=== PATIENT | female | born 1960 | race Caucasian/White ===

== ENCOUNTER → 2020-10-05 | Day surgery (SDC) | payer MEDICARE, OTHER ==
[~2020-10-05] MED LIST: ESTRADIOL1 EAC4 TD; NIFEDIPINE ER30 M1 PO
== END | disposition home or self-care (01) ==
LOC: OR 07:29
DX: K57.30 Diverticulosis of large intestine without perforation or abscess without bleeding (principal); K64.0 First degree hemorrhoids; K64.4 Residual hemorrhoidal skin tags; I10 Essential (primary) hypertension; E78.5 Hyperlipidemia, unspecified; M19.90 Unspecified osteoarthritis, unspecified site; E66.01 Morbid (severe) obesity due to excess calories; Z68.39 Body mass index [BMI] 39.0-39.9, adult; Z87.891 Personal history of nicotine dependence; Z80.0 Family history of malignant neoplasm of digestive organs; Z88.5 Allergy status to narcotic agent; Z88.2 Allergy status to sulfonamides; Z88.0 Allergy status to penicillin; Z79.899 Other long term (current) drug therapy
CPT/HCPCS: J7040